=== PATIENT | male | born 1955 | race Caucasian/White ===

== ENCOUNTER 2021-01-19 16:49 | Emergency (ER) | payer SELFPAY ==
[~2021-01-19] VITALS: Ht 177.8 cm; Wt 72.6 kg
[2021-01-19 16:50] VITALS: BP 112/72
--- NOTE | 2021-01-19 17:10 | NUR ---
65/M BIBA FOR ETOH. PER EMS BYSTANDERS FOUND PATIENT LYING SUPINE IN A PARKING LOT AND CALLED 911. EMS STATES WHEN THEY ARRIVED ON SCENE PATIENT HAD A CUP OF ALCOHOL NEXT TO HIM. UPON ARRIVAL PATIENT IS NOT ANSWERING QUESTIONS, SPEECH IS SLURRED. UNABLE TO OBTAIN INFORMATION FROM PATIENT. 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 MEDHX: UNOBTAINABLE ALLERGIES: UNOBTAINABLE
--- NOTE | 2021-01-19 17:23 | NUR ---
PATIENT ELOPED FROM FACILITY. DISCHARGE INSTRUCTIONS NOT GIVEN TO PATIENT. DR. MICHEL NOTIFIED.
== END 2021-01-19 17:23 | disposition left against medical advice (07) ==
LOC: MED 16:49
DX: F10.129 Alcohol abuse with intoxication, unspecified (principal)
CPT/HCPCS: 99283